=== PATIENT | male | born 1940 | race African-American/Black ===

== ENCOUNTER 2017-05-14 11:58 | Emergency (ER) | payer OTHER ==
[~2017-05-14] VITALS: Ht 172.7 cm; Wt 57.6 kg
--- NOTE | 2017-05-14 12:23 | ED.ADGEN ---
Adult General Chief Complaint Chief Complaint: ABDOMINAL PAIN HPI HPI Patient is a 76 year old -[place] male presents with intermittent right lower quadrant pain radiating to groin starting this morning. Symptoms associated with nausea and vomiting and chills. Patient took 2 Tylenol threes with limited relief. Denies flank pain, urinary frequency urgency and dysuria. No chest pain shortness of breath. No other acute symptoms or complaints. Review of Systems Review of Systems Review symptoms as per history of present illness. Current Medications Current Medications Current Medications Medications (Trade) Dose Ordered Sig/Tonia Start Time Stop Time Status Last Admin Dose Admin Fentanyl Citrate (Fentanyl 2ml Vial) 50 mcg 1X ONCE 05/14/17 12:30 05/14/17 12:31 DC 05/14/17 12:31 50 MCG Info (Do NOT chart on this entry -- for MONITORING) 1 each PRN DAILY PRN 05/14/17 13:30 05/14/17 16:49 DC Iohexol (Omnipaque 300 Mg/ml) 75 ml 1X ONCE 05/14/17 13:15 05/14/17 13:16 DC 05/14/17 13:31 75 ML Morphine Sulfate 5 mg 1X ONCE 05/14/17 13:45 05/14/17 13:46 DC 05/14/17 13:43 5 MG Ondansetron HCl (Zofran) 4 mg 1X ONCE 05/14/17 12:30 05/14/17 12:31 DC 05/14/17 12:28 4 MG Promethazine HCl 12.5 mg/Sodium Chloride 50.5 ml @ 151.5 mls/ hr PRN Q6HRS PRN 05/14/17 14:45 05/14/17 16:49 DC 05/14/17 14:55 151.5 MLS/HR Sodium Chloride 1,000 ml @ 1,000 mls/hr 1X ONCE 05/14/17 12:30 05/14/17 13:29 DC 05/14/17 12:28 1,000 MLS/HR Allergies Allergies Allergies Coded Allergies Type Severity Reaction Last Updated Verified Penicillins Allergy Intermediate 05/14/17 Yes aspirin Allergy Intermediate 05/14/17 Yes Physical Exam Physical Exam Constitutional: Well developed, moderate discomfort secondary to pain. HENT: Normocephalic, atraumatic, bilateral external ears normal, oropharynx moist, no oral exudates, nose normal. Eyes: PERRL. Neck: Normal range of motion. Cardiovascular:Heart rate regular rhythm. Lungs & Thorax: Bilateral breath sounds clear to auscultation. Abdomen: Bowel sounds normal, soft, RLQ pain/tenderness to palpation with voluntary guarding. Skin: Warm, dry. Back: No tenderness, no CVA tenderness. Extremities: No tenderness. Neurologic: Alert and oriented X 3, normal motor function, normal sensory function, no focal deficits noted. Psychologic: Affect normal, judgement normal, mood normal. Current Patient Data Vital Signs Vital Signs Date Time Temp Pulse Resp B/P (MAP) Pulse Ox O2 Delivery O2 Flow Rate FiO2 05/14/17 16:21 58 20 158/69 (98) Room Air 05/14/17 15:09 95 05/14/17 12:00 98.5 98.5 Lab Values Laboratory Tests Test 05/14/17 12:10 05/14/17 12:40 White Blood Count 6.8 x10^3/uL (4.0-11.0) Red Blood Count 5.24 x10^6/uL (4.30-5.70) Hemoglobin 13.3 g/dL (13.0-17.5) Hematocrit 40.5 % (39.0-53.0) Mean Corpuscular Volume 77 fL (79-100) L Mean Corpuscular Hemoglobin 25 pg (25-35) Mean Corpuscular Hemoglobin Concent 33 g/dL (31-37) Red Cell Distribution Width 14.0 % (11.5-14.5) Platelet Count 180 x10^3/uL (140-400) Neutrophils (%) (Auto) 79 % (31-73) H Lymphocytes (%) (Auto) 13 % (24-48) L Monocytes (%) (Auto) 7 % (0-9) Eosinophils (%) (Auto) 0 % (0-3) Basophils (%) (Auto) 1 % (0-3) Neutrophils # (Auto) 5.4 x10^3uL (1.8-7.7) Lymphocytes # (Auto) 0.9 x10^3/uL (1.0-4.8) L Monocytes # (Auto) 0.5 x10^3/uL (0.0-1.1) Eosinophils # (Auto) 0.0 x10^3/uL (0.0-0.7) Basophils # (Auto) 0.0 x10^3/uL (0.0-0.2) Sodium Level 141 mmol/L (136-145) Potassium Level 3.5 mmol/L (3.5-5.1) Chloride Level 105 mmol/L (98-107) Carbon Dioxide Level 27 mmol/L (21-32) Anion Gap 9 (6-14) Blood Urea Nitrogen 13 mg/dL (8-26) Creatinine 1.1 mg/dL (0.7-1.3) Estimated GFR (Cockcroft-Gault) 79.2 BUN/Creatinine Ratio 12 (6-20) Glucose Level 102 mg/dL (70-99) H Calcium Level 9.2 mg/dL (8.5-10.1) Total Bilirubin 0.4 mg/dL (0.2-1.0) Aspartate Amino Transferase (AST) 27 U/L (15-37) Alanine Aminotransferase (ALT) 50 U/L (16-63) Alkaline Phosphatase 106 U/L (46-116) Total Protein 8.1 g/dL (6.4-8.2) Albumin 3.7 g/dL (3.4-5.0) Albumin/Globulin Ratio 0.8 (1.0-1.7) L Urine Collection Type Unknown Urine Color Yellow Urine Clarity Clear Urine pH 6.5 Urine Specific [place] 1.025 Urine Protein Negative mg/dL (NEG-TRACE) Urine Glucose (UA) Negative mg/dL (NEG) Urine Ketones (Stick) Negative mg/dL (NEG) Urine Blood Moderate (NEG) Urine Nitrite Negative (NEG) Urine Bilirubin Negative (NEG) Urine Urobilinogen Dipstick 1.0 mg/dL (0.2 mg/dL) Urine Leukocyte Esterase Small (NEG) Urine RBC 11-20 /HPF (0-2) Urine WBC 1-4 /HPF (0-4) Urine Squamous Epithelial Cells Occ /LPF Urine Bacteria 0 /HPF (0-FEW) Urine Mucus Marked /LPF Laboratory Tests 05/14/17 12:10 Laboratory Tests 05/14/17 12:10 EKG EKG [] Radiology/Procedures Radiology/Procedures [CT abdomen pelvis: UVJ stone with mild hydro-nephrosis.] Course & Med Decision Making Course & Med Decision Making Pertinent Labs and Imaging studies reviewed. (See chart for details) [Pain well controlled and essentially resolved while in the ED. CT shows distal right ureteral stone with mild hydro-. UA is negative. We'll treat supportively with watchful waiting and urology referral. Return precautions reviewed. Darwin Disclaimer Darwin Disclaimer This electronic medical record was generated, in whole or in part, using a voice recognition dictation system. WILFRED QUEEN DO May 14, 2017 12:23
[2017-05-14 12:27] LABS: BASO % 1 % (0-3); EOS % 0 % (0-3); HEMATOCRIT 40.5 % (39.0-53.0); HEMOGLOBIN 13.3 g/dL (13.0-17.5); LYMPH # 0.9 x10^3/uL (1.0-4.8); LYMPH % 13 % (24-48); MEAN CORPUSCULAR HEMOGLOBIN 25 pg (25-35); MEAN CORPUSCULAR HGB CONC 33 g/dL (31-37); MEAN CORPUSCULAR VOLUME 77 fL (79-100); MONO % 7 % (0-9); NEUT % 79 % (31-73); PLATELET COUNT 180 x10^3/uL (140-400); RED BLOOD COUNT 5.24 x10^6/uL (4.30-5.70); WHITE BLOOD COUNT 6.8 x10^3/uL (4.0-11.0)
[2017-05-14] MEDS ORDERED: ONDANSETRON PF 4 MG/2 ML VIAL. IV ONE (12:30)
[2017-05-14] MEDS ORDERED: fentaNYL PF VIAL 100 MCG/2 ML VIAL IV ONE (12:30)
[2017-05-14] MEDS ORDERED: IV NORMAL SALINE 1000ML BAG 1,000 ML IV ONE (12:30)
[2017-05-14 12:40] LABS: CALCIUM 9.2 mg/dL (8.5-10.1); CREATININE 1.1 mg/dL (0.7-1.3); GFR 79.2; POTASSIUM 3.5 mmol/L (3.5-5.1)
[2017-05-14 12:46] LABS: ALBUMIN 3.7 g/dL (3.4-5.0); ALBUMIN/GLOBULIN RATIO 0.8 (1.0-1.7); TOTAL BILIRUBIN 0.4 mg/dL (0.2-1.0); TOTAL PROTEIN 8.1 g/dL (6.4-8.2)
[2017-05-14 12:56] LABS: BILIRUBIN,URINE NEGATIVE (NEG); GLUCOSE,URINE NEGATIVE (NEG); NITRITE,URINE NEGATIVE (NEG); PH,URINE 6.5; PROTEIN,URINE NEGATIVE (NEG-TRACE)
[2017-05-14 13:11] LABS: SQUAMOUS EPITHELIAL CELL,UR OCC /LPF
[2017-05-14 13:12] LABS: BACTERIA,URINE 0 /HPF (0-FEW)
[2017-05-14] MEDS ORDERED: IOHEXOL 300 MG/ML 75 ML VIAL IV ONE (13:15)
[2017-05-14] MEDS ORDERED: CONTRAST GIVEN MC PRN (13:30)
[2017-05-14] MEDS ORDERED: MORPHINE SULFATE 10 MG/ML VIAL. IV ONE (13:45)
--- NOTE | 2017-05-14 13:49 | ACF ---
Admit Criteria Forms Admit Criteria Forms Admit Criteria Forms ABDOMINAL PAIN Clinical Indications for Admission to Inpatient Care (Place 'X' for any and all applicable criteria): Admission is indicated for ANY ONE of the following(1)(2)(3)(4)(5): [ ]I. Inpatient admission required rather than observation care (Also use Abdominal Pain: Observation Care, as appropriate) because of ANY ONE of the following: [ ]a) Severe pain requiring acute inpatient management [ ]b) Identification of etiology/finding that requires inpatient care (eg, aortic dissection, free air) [ ]c) Absent bowel sounds with complete ileus(6) [ ]d) Suspected toxic megacolon [ ]e) Severe electrolyte abnormalities requiring inpatient care [ ]f) High fever or infection requiring inpatient admission as indicated by ANY ONE of following(7)(8): [ ] i) Appropriate outpatient or observational care antimicrobial treatment unavailable, not effective, or not feasible [ ] ii) Documented bacteremia [ ] iii) Temperature > 104.9 degrees F (oral) [ ] iv) T >103.1 F (oral) or < 96.8 F(rectal) that does not respond to all emergency treatment measures [ ]g) Signs of intestinal obstruction [B] [ ]h) Hemodynamic instability [ ]i) IV fluid to replace significant ongoing losses (greater than 3 L/m2 per day) (12)(13) [ ]j) Percutaneous or open drainage (eg, abscess, biliary tract ) procedures [ ]k) Parenteral nutrition regimen that must be implemented on inpatient basis [ ]l) Other condition,treatment or monitoring requiring inpatient admission. [ ]II. Peritoneal signs present [ ]III. Surgery needed that cannot be performed on an ambulatory basis. [ ]IV. Evaluation requires patient to not eat or drink for extended period ( eg, more than 24 hours). [ ]V. Contraindications and/or Inappropriate clinical situations for Observational Care in patients with abdominal pain, when ANY ONE of the following is required: [ ]a) Thorough evaluation is required to prevent catastrophic events due to delays in diagnosing (e.g.Mesenteric ischemia) 1,3 [ ]b) Patient with severe pathology or with chronic symptoms unlikely to improve in the ED stay (3) [ X]. General contraindications and/or Inappropriate clinical situations for Observational Care in patients with abdominal pain, when ANY ONE of the following is required: [X ]a) Prediction of prolongation of LOS based on ANY ONE of the following may be considered as a contraindication for observational care 2, 3, 4, 5, 6, 7, 8, 9, 10, 11 [X ]i) Age > 65 yrs. [ ]ii) Patient arriving by ambulance [ ]iii) Patient with high acuity [ ]iv) Patient requiring vital sign monitoring [ ]v) Patient on IV medication [ ]b) Systolic blood pressures 180mmHg 3,12 [ ]c) Patient with altered mental status including delirium and other alteration of consciousness, (3) [ ]d) Patient whose discharge disposition will be to a long-term home or rehabilitation home should not be managed in Emergency Department Observation Unit. CMS rule requires 3 days hospital stay before such placement.3,13 [ ]e) Patient with failure to thrive due to broad array of etiologies 3,16,17 [ ]f) Inability to ambulate 3,14 Extended stay beyond goal length of stay may be needed for(2)(3): [ ]a) Persistent abdominal pain with suspected intra-abdominal process [ ]b) Diagnosed condition requiring continued stay (e.g., pancreatitis, complicated diverticulitis) [ ]c) Surgery (e.g., colectomy) The original [employer] content created by [employer] has been revised. The portions of the content which have been revised are identified through the use of italic text or in bold, and [facility] has neither reviewed nor approved the modified material.All other unmodified content is copyright [employer]. Please see references footnoted in the original [employer] edition 2016 MARIUSZ CISNEROS May 14, 2017 13:49
[2017-05-14] MEDS ORDERED: PROMETHAZINE 12.5 MG in IV NORMAL SALINE 50ML 50 ML IV PRN (14:45)
--- NOTE | 2017-05-14 15:01 | RAD ---
CT of the abdomen and pelvis with contrast, 05/14/2017: History: Right lower quadrant pain Multidetector CT imaging was performed following an IV bolus injection of iodinated contrast material. No oral contrast was administered for this study as requested. This limits evaluation of GI tract structures in this patient with a paucity of intra-abdominal fat. Comparison is made to a study from 02/29/2012. There are mild groundglass opacities in both lung bases, also evident on the previous study. This may be due to fibrosis. No pleural fluid is evident. No hepatic mass or bile duct dilatation is seen. The gallbladder is unremarkable. No pancreatic abnormality is detected. The spleen is of normal size. There is a tiny cortical cyst in the lower pole of the left kidney. 2 tiny low-density lesions in the right kidney are too small to definitively characterize but are also probably cysts. The right renal collecting system is mildly prominent. There is mild perinephric edema on the right. There are mildly asymmetric nephrograms. No intrarenal calculi are seen. The ureters cannot be clearly traced through the abdomen and pelvis in this patient. There is a 3 mm radiopacity present along the posterior wall of the urinary bladder on the right which was not evident on the previous study. The appearance raises the possibility of a calculus lodged at the ureterovesical junction level. There is moderate aortoiliac calcific plaquing without evidence of aneurysm. No abdominal or pelvic adenopathy is seen. The prostate gland is at the upper limits of normal in size. The bowel loops are not dilated. There is very little intra-abdominal fat the bowel loops in this patient. The appendix cannot be visualized. No dilated appendix or pericecal inflammatory process is seen. No free air or significant free fluid is identified in the abdomen or pelvis. IMPRESSION: 1. Mild dilatation of the right renal collecting system with mild right perinephric edema, probably due to a calculus lodged at the right ureterovesical junction. 2. Bibasilar groundglass opacities, probably due to fibrosis. PQRS Compliance Statement: One or more of the following individualized dose reduction techniques were utilized for this examination: 1. Automated exposure control 2. Adjustment of the mA and/or kV according to patient size 3. Use of iterative reconstruction technique
[2017-05-14 16:21] VITALS: BP 158/69
== END 2017-05-14 16:40 | disposition home or self-care (01) ==
LOC: ER 11:58
DX: N13.2 Hydronephrosis with renal and ureteral calculous obstruction (principal); Z88.0 Allergy status to penicillin; Z88.6 Allergy status to analgesic agent
CPT/HCPCS: 36415; 74177; 80053; 81001; 85027; 87086; 96361; 96365; 96375; 99285; J2270; J2405; J2550; J3010; J7030; Q9967

== ENCOUNTER 2018-03-12 08:04 | Day surgery (SDC) | payer OTHER ==
[2018-03-12] MEDS ORDERED: fentaNYL PF VIAL 100 MCG/2 ML VIAL (08:39)
[2018-03-12] MEDS ORDERED: LIDOCAINE 2% PF Vial for OR 5 ML VIAL. (08:39)
[2018-03-12] MEDS ORDERED: PROPOFOL 20 ML IV (08:39)
[2018-03-12] MEDS: IV RINGERS,LACTATED 1000ML 1,000 ML IV (08:43)
[2018-03-12] MEDS ORDERED: LIDOCAINE 1% PF 2 ML VIAL. ID (08:45)
[2018-03-12] MEDS ORDERED: fentaNYL PF VIAL 100 MCG/2 ML VIAL IV ×2 (08:45)
[2018-03-12] MEDS ORDERED: MIDAZOLAM HCL/PF 2 MG/2 ML VIAL. IV (08:45)
[2018-03-12] MEDS ORDERED: BUPIVACAINE MPF 0.5% 30 ML VIAL. (11:17)
[2018-03-12 11:47] LABS: ADD MAN DIFF? NO
[2018-03-12 11:51] LABS: BASO # 0.1 x10^3/uL (0.0-0.2); BASO % 2 % (0-3); EOS # 0.2 x10^3/uL (0.0-0.7); EOS % 3 % (0-3); HEMATOCRIT 38.6 % (39.0-53.0); HEMOGLOBIN 12.5 g/dL (13.0-17.5); LYMPH # 2.3 x10^3/uL (1.0-4.8); LYMPH % 40 % (24-48); MEAN CORPUSCULAR HEMOGLOBIN 25 pg (25-35); MEAN CORPUSCULAR HGB CONC 33 g/dL (31-37); MEAN CORPUSCULAR VOLUME 78 fL (79-100); MONO # 0.6 x10^3/uL (0.0-1.1); MONO % 10 % (0-9); NEUT # 2.6 x10^3uL (1.8-7.7); NEUT % 46 % (31-73); PLATELET COUNT 228 x10^3/uL (140-400); RED BLOOD COUNT 4.93 x10^6/uL (4.30-5.70); RED CELL DISTRIBUTION WIDTH 15.3 % (11.5-14.5); WHITE BLOOD COUNT 5.7 x10^3/uL (4.0-11.0)
[2018-03-12] MEDS ORDERED: BUPIVACAINE-EPI 0.25%-1:200000 50 ML VIAL. (11:57)
[2018-03-12 11:59] LABS: INR 1.1 (0.8-1.1); PROTHROMBIN TIME PATIENT 13.5 SEC (11.7-14.0)
[2018-03-12 12:07] LABS: ANION GAP 4 (6-14); BLOOD UREA NITROGEN 13 mg/dL (8-26); BUN/CREATININE RATIO 16 (6-20); CALCIUM 9.1 mg/dL (8.5-10.1); CARBON DIOXIDE 29 mmol/L (21-32); CHLORIDE 104 mmol/L (98-107); CREATININE 0.8 mg/dL (0.7-1.3); GLUCOSE 86 mg/dL (70-99); SODIUM 137 mmol/L (136-145)
[2018-03-12 12:12] LABS: ALBUMIN 3.3 g/dL (3.4-5.0); ALBUMIN/GLOBULIN RATIO 0.7 (1.0-1.7); ALK PHOS 106 U/L (46-116); ALT (SGPT) 40 U/L (16-63); AST (SGOT) 26 U/L (15-37); TOTAL BILIRUBIN 0.7 mg/dL (0.2-1.0); TOTAL PROTEIN 7.9 g/dL (6.4-8.2)
[2018-03-12] MEDS ORDERED: ONDANSETRON PF 4 MG/2 ML VIAL. (12:56)
[2018-03-12] MEDS ORDERED: SEVOFLURANE 31 TO 60 MINUTES. IH (12:56)
[2018-03-12] MEDS ORDERED: DEXAMETHASONE SOD PHOS 20 MG/5 ML VIAL. (12:56)
[2018-03-12] MEDS: HYDROcodone/APAP 5/325MG 1 TAB TABLET PO (14:20)
== END 2018-03-12 15:27 | disposition home or self-care (01) ==
LOC: SURG 08:04
DX: N62 Hypertrophy of breast (principal); F41.9 Anxiety disorder, unspecified; Z88.0 Allergy status to penicillin; Z88.6 Allergy status to analgesic agent; Z87.442 Personal history of urinary calculi; Z98.890 Other specified postprocedural states; F12.90 Cannabis use, unspecified, uncomplicated; F17.210 Nicotine dependence, cigarettes, uncomplicated; Z79.899 Other long term (current) drug therapy
CPT/HCPCS: 19120; 36415; 80053; 85025; 85610; 88305; A7015; J0690; J1100; J2405; J2704; J3010; J3490; J7120

== ENCOUNTER → 2019-10-24 | Outpatient (CLI) | payer OTHER ==
[2018-03-12 14:50] VITALS: BP 150/83
[~2019-10-24] MED LIST: HYDR-2761 PO; OMEP20TA63 PO; REGADENOSON 0.4 MG/5 ML DISP.SYRIN. IV ONE; VITA200T6 PO
--- NOTE | 2019-10-24 13:18 | RAD ---
MR#: [id number] Date of Study: 10/24/2019 Ordering Physician: LATASHA PURDY, Referring Physician: LLOYD ECHEVERRIA Tech: FLY Anderson APPROVED REPORT Test Type: Pharmacological Stress Nurse/Tech: Sade Yu RN Test Indications: Chest pain Cardiac History: Liver disease Medications: See Electronic Medical Record Medical History: See Electronic Medical Record Resting ECG: SR with BBB Resting Heart Rate: 60 bpm Resting Blood Pressure: 140/72mmHg Pretest Chest Pain: No chest pain Nurse/Tech Notes S1,S2 and lungs slightly diminished in the bases. Consent: The procedure was explained to the patient in lay terms. Informed consent was witnessed. Sherwin eout was entered into [employer]. History and Stress Test performed by DEONTE Winters, KATHARINE (R) (N) Pharm. Details Pharmacologic stress testing was performed using 0.4mg per 5ml of regadenoson given intravenously ove r 7-10 seconds. Stress Symptoms Dizziness POST EXERCISE Reason for Termination: Infusion complete Target HR: No Max HR: 120 bpm Max Blood Pressure: 137/42mmHg Blood Pressure response to exercise: Abnormal blood pressure response during stress. Heart Rate response to exercise: WNL Chest Pain: No. Arrhythmia: No. ST Change: No. INTERPRETATION Stress EKG Conclusion: Baseline EKG showed sinus rhythm. Non-diagnostic changes at peak stress. No arrhythmias. Imaging Protocol IMAGE PROTOCOL: Rest Tc-99m/stress Tc-99m 1 day Rest: Stress: Viability: Radiopharm.Tc99m [id number] Sestamibi [id number] 33mCi Duration 15min. 10min. Img Date 10/24/2019 10/24/2019 Inj-Img [id number]. 60min. Rest Admin Site:IV - Right AntecubitalAdministrator:DEONTE Winters, SUMANT (R)(N) Stress Admin Site: IV - Right AntecubitalAdministrator: RT Digna (R)(N) STRESS DATA End Diast. Vol.84.0mlAv. Heart Rate68.0bpm End Syst. Vol.25.0mlCO Index BSA0.0L/min Myocardial Mjsr369.0gEject. Zhptrvlu19.0% Stress Rates Pk. Fill Rate2.08EDV/secLVtime Pk. Fill 105.29msec Pk. Empty Rate3.79ESV/secLVtime Pk. Hcnyu509.46msec 1/3 Pk. Fill1.46EDV/sec Stress Scores Regional WT1.00Summed WT3.00 Regional WM0.00Summed WM3.00 Study quality was good. Left Ventricular size was Normal at Rest and Stress. Lung uptake was . Left Ventricular ejection fraction is %. The rest and stress images show normal perfusion, normal contraction and thickening. LV Perfusion Scintigraphic images showed small reversible defect involving the anteroapical wall consistent with i schemia. Wall Motion Normal left ventricle systolic function with ejection fraction calculated at 70%. LV Perf. Quant 17 Seg. SSS2.00 17 Seg. SRS0.00 17 Seg. SDS2.00 Stress Defect Extent (% LAD)11.90Rest Defect Extent (% LAD)0.00Rev. Defect Extent (% LAD)10.00 Stress Defect Extent (% LCX) 0.00Rest Defect Extent (% LCX)0.00Rev. Defect Extent (% LCX)0.00 Stress Defect Extent (% RCA)0.00Rest Defect Extent (% RCA)0.00Rev. Defect Extent (% RCA)0.00 Stress Defect Extent (% TIERRA)4.30Rest Defect Extent (% TIERRA)0.00Rev. Defect Extent (% TIERRA)3.70 Conclusion 1. Regadenoson cardioisotope stress test showed small amount of anteroapical wall ischemia (SDS 2). 2. Normal left ventricular systolic function with ejection fraction calculated at 70%. 3. Low to intermediate risk for cardiac events Signed by : Odilon Potter, Electronically Approved : 10/24/2019 13:18:27
== END ==
LOC: NM 08:18
PROVIDERS: ATTEND Internal Medicine Cardiovascular Disease
DX: I25.89 Other forms of chronic ischemic heart disease (principal); Z88.0 Allergy status to penicillin; Z88.6 Allergy status to analgesic agent
CPT/HCPCS: 78452; 93017; A9500; J2785